=== PATIENT | female | born 2000 | race African-American/Black ===

== ENCOUNTER 2019-07-25 15:47 | Emergency (ER) | payer OTHER ==
[~2019-07-25] VITALS: Ht 160 cm; Wt 68.0 kg
[2019-07-25 15:48] VITALS: BP 102/60
[2019-07-25] MEDS ORDERED: KETOROLAC 60MG/2ML VIAL IM STA (16:15)
[2019-07-25] MEDS ORDERED: ONDANSETRON 4MG ODT PO ONE (16:15)
== END 2019-07-25 17:03 | disposition left against medical advice (07) ==
LOC: ER 15:47
DX: R10.32 Left lower quadrant pain (principal); R10.31 Right lower quadrant pain; R11.10 Vomiting, unspecified; R19.7 Diarrhea, unspecified
CPT/HCPCS: 93005; 96372; 99283; J1885; Q0162